=== PATIENT | female | born 1950 | race Caucasian/White ===

== ENCOUNTER 2018-08-16 14:45 | Emergency (ER) | payer SELFPAY ==
--- NOTE | 2018-08-16 15:12 | EDPHY ---
H & P Stated Complaint: Mech fall - Personal History Current Tetanus/Diphtheria Vaccine: Yes - Medical/Surgical History Hx Asthma: No Hx Chronic Respiratory Disease: No Hx Diabetes: No Hx Cardiac Disease: No Hx Renal Disease: No Hx Cirrhosis: No Hx Alcoholism: No Other PMH: depression/hypothyroidism - Social History Smoking Status: Never smoked Time Seen by Provider: 08/16/18 15:12 Constitutional: Initial Vital Signs Temperature (C) 36.6 C 08/16/18 14:51 Heart Rate 93 08/16/18 14:51 Respiratory Rate 18 08/16/18 14:51 Blood Pressure 128/75 H 08/16/18 14:51 O2 Sat (%) 95 08/16/18 14:51 O2 Delivery Mode Room Air Allergies/Adverse Reactions: No Known Allergies Allergy (Unverified 08/16/18 14:54) Home Medications: Medication Instructions Recorded Abilify 08/16/18 Cymbalta 08/16/18 Hydrocodone/APAP 5/325 [Almyra 1 - 2 each PO Q4-6PRN PRN #20 tab 08/16/18 5/325] Ibuprofen [Motrin] 800 mg PO Q8 #20 tab 08/16/18 Synthroid 08/16/18 Wellbutrin Xl 08/16/18 Medical Decision Making - Diagnostics Imaging: I viewed and interpreted images myself - Diagnostics Imaging Results: Imaging Impressions Hand X-Ray 08/16/18 15:23 Impression: 1. Acute left fifth proximal phalanx fracture. 2. Normal right hand. Hand X-Ray 08/16/18 15:23 Impression: 1. Acute left fifth proximal phalanx fracture. 2. Normal right hand. Procedures: Procedure: Laceration repair. Verbal consent was obtained from the patient. The 5 cm, simple, vertical laceration on the right side of the forehead was anesthetized in the usual fashion using 4 mL of 1% lidocaine with epinephrine. The wound was irrigated, draped and explored to its base with a gloved finger. There were no deep structures involved. No tendon injury was identified. The wound was repaired with #3, 5 0 Prolene. Good Hemostasis was achieved and patient tolerated procedure well. The procedure was performed by myself. (Mary Ann Hernandez) ED Course/Re-evaluation: CHIEF COMPLAINT: Fall HISTORY OF PRESENT ILLNESS: 67-year-old female who was hiking. She lost her balance and had a mechanical fall. She fell forward. She complains of some abrasions and pain to both hands. She also has a little bit of right hip pain but states that she was able to hike out without any difficulty. She has an abrasion on her nose with a little bit of blood from the left naris. And she has lacerations and abrasions on her forehead over her right eye. She denies loss of consciousness, nausea vomiting, not a retrograde or antegrade amnesia, neurologic deficits, or taking of any blood thinners. She denies any pain or symptoms to her feet ankles knees or any lower extremity except a little bit on the right hip is mention. Her elbows shoulders and everything above her hands are normal also. She denies any back pain. REVIEW OF SYSTEMS: A comprehensive 10 system review of systems is otherwise negative aside from elements mentioned in the history of present illness and medical decision making. PHYSICAL EXAM: HR, BP, O2 Sat, RR. Temp noted General Appearance: Alert, well hydrated, appropriate, and non-toxic appearing. Head: Atraumatic without scalp tenderness or obvious injury Eyes: Pupils equal, round, reactive to light and accommodation, EOMI, no trauma , no injection. Ears: Clear bilaterally, no perforation, normal landmarks Nose: Atraumatic, no rhinorrhea, clear. Throat: There is no erythema or exudates, no lesions, normal tonsils, mucus membranes moist. Neck: Supple, 2+ carotid upstroke, nontender, no lymphadenopathy. Respiratory: No retractions, no distress, no wheezes, and no accessory muscle use. Lungs are clear to auscultation bilaterally. Cardiovascular: Regular rate and rhythm, no murmurs, rubs, or gallops. Bilateral carotid, radial, dorsalis pedis, and posterior tibial pulses intact. Good capillary refill all extremities. Gastrointestinal: Abdomen is soft, nontender, non-distended, no masses, no rebound, no guarding, no peritoneal signs. Musculoskeletal: Normal active ROM of all extremities, atraumatic. Neurological: Alert, appropriate, and interactive. The patient has normal DTRs and non-focal cranial nerves, motor, sensory, and cerebellar exam. Skin: Abrasions on the right forehead with a 3 cm laceration requiring sutures. Please see separate suture note. Abrasions on bilateral hands nothing suturable. Significant bruising over the left little finger proximal phalanx. No rashes, good turgor, no nodules on palpation. Past medical history: Noncontributory Past surgical history: Noncontributory Family history: Noncontributory Social history: Does not abuse tobacco drugs or alcohol, retired DIAGNOSTICS/PROCEDURES/CRITICAL CARE TIME: Study: Bilateral hand x-rays Indication: Trauma Results: After viewing the images myself on the PACS system. My interpretation of the images is: transverse fracture with minimal displacement of the left little finger phalanx. The radiologist interpretation is pending at the time of this dictation. I have discussed the above x-rays with the radiologist. Procedure: Splint placement. A Orthoglass ulnar gutter splint was applied to the left hand by the tech. After application of the splint I returned and re-examined the patient. The splint was adequately immobilizing the joint and distal to the splint the patient's circulation and sensation was intact. DIFFERENTIAL DIAGNOSIS: The differential diagnosis for the patient's trauma included but was not limited to intracranial injury, long bone and pelvic bone fractures, spinal injury, intra-abdominal injury, and intra-thoracic injury. MEDICAL DECISION MAKING: This patient does not meet criteria for head CT scan. She has negative based on the [place] head CT rules set and the nexus rules set. Additionally, she has a suturable laceration which will be repaired by Mary Ann Hernandez. Please see her note separately. X-rays of the hands are pending. All of her abrasions will be appropriately clean. She does not want anything for pain medicine. She also does not require a hip x-ray at this time as she has no hip pain on my examination and can raise her bed and can walk on her hip. 1622: I reviewed patient's hand x-ray's which reveal a transverse fracture with minimal displacement of the left little finger phalanx. Patient will be placed in an ulnar gutter splint. 1625: Reassessed patient and discussed imaging findings. I have advised her to follow up with a hand orthopedic surgeon. Return precautions provided; patient is comfortable with this plan. (Robin Steele) Departure - Departure Disposition: Home, Routine, Self-Care Clinical Impression: Fall Qualifiers: Encounter type: initial encounter Qualified Code(s): W19.XXXA - Unspecified fall, initial encounter Abrasion hand Qualifiers: Encounter type: initial encounter Laterality: unspecified laterality Qualified Code(s): S60.519A - Abrasion of unspecified hand, initial encounter Abrasion head Qualifiers: Encounter type: initial encounter Qualified Code(s): S00.91XA - Abrasion of unspecified part of head, initial encounter Laceration of forehead Qualifiers: Encounter type: initial encounter Qualified Code(s): S01.81XA - Laceration without foreign body of other part of head, initial encounter Fracture, finger Qualifiers: Encounter type: initial encounter Finger: little finger Fracture type: closed Phalanx: proximal Fracture alignment: displaced Laterality: left Qualified Code( s): S62.617A - Displaced fracture of proximal phalanx of left little finger, initial encounter for closed fracture Condition: Good Instructions: Care For Your Stitches (ED), Laceration (ED), Finger Fracture (ED ), Abrasion (ED) Additional Instructions: Keep the dressing dry and in place for 48 hours. After 48 hours, you may remove the dressing; wash the site daily with mild soap and water; then pat dry. Take Tylenol 650 mg every 4 hours and/or Ibuprofen 600 mg every 8 hours with food as needed for pain. Wound Care Follow-Up: Removal of sutures in [ 7 ] days. Suture removal is complimentary in uncomplicated cases. Infection or abnormal findings would require reevaluation by the MD. In that case, you may be billed. Return to the Emergency Department for fever, redness , discharge from wound, increasing pain or other worsening of condition. Rest, ice, elevation. Take Almyra as prescribed for pain. Follow up with an orthopedic surgeon within one week. Return to the emergency department for worsening pain, swelling, numbness, weakness or other concerns. Wear splint at all times until reevaluation. Referrals: Jose Cruz Galindo MD [Medical Doctor] - As per Instructions Nadine Izaguirre MD [Medical Doctor] - As per Instructions Sarwat Allen MD [Medical Doctor] - As per Instructions Prescriptions: Hydrocodone/APAP 5/325 [Almyra 5/325] 1 - 2 each PO Q4-6PRN PRN #20 tab PRN Reason: Pain, Moderate Ibuprofen [Motrin] 800 mg PO Q8 #20 tab
[2018-08-16 17:17] VITALS: BP 131/74
== END 2018-08-16 17:16 | disposition home or self-care (01) ==
PROC: 0HQ1XZZ Repair Face Skin, External Approach (ICD-10-PCS; principal; 2018-08-16)
PROC: 2W3DX1Z Immobilization of Left Lower Arm using Splint (ICD-10-PCS; 2018-08-16)
DX: S01.81XA Laceration without foreign body of other part of head, initial encounter (principal); S62.617A Displaced fracture of proximal phalanx of left little finger, initial encounter for closed fracture; S60.511A Abrasion of right hand, initial encounter; S60.512A Abrasion of left hand, initial encounter; S00.91XA Abrasion of unspecified part of head, initial encounter; W19.XXXA Unspecified fall, initial encounter; Y93.01 Activity, walking, marching and hiking; Y92.828 Other wilderness area as the place of occurrence of the external cause